=== PATIENT | female | born 1985 | race Caucasian/White ===

== ENCOUNTER 2016-08-18 09:27 | Emergency (ER) | payer MEDICAID ==
--- NOTE | 2016-08-18 10:53 | ER Document Report ---
ED General - General Chief Complaint: Jaw Pain Stated Complaint: JAW PAIN Time seen by provider: 10:28 TRAVEL OUTSIDE OF THE [place] IN LAST 30 DAYS: No - HPI Notes: Patient presents with report of left jaw TMJ pain that she's had chronically since 1999 when she had jaw surgery, but she reports worsening of it recently. 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 She's tried Flexeril without relief. She reports no fever or chills but the pain radiates up to the temporal region and down to the jaw. The patient reports no pharyngitis or difficulty swallowing but she has significant pain with opening and closing the jaw and is unable to completely open the jaw. - Related Data Allergies/Adverse Reactions: aripiprazole [From Abilify] Allergy (Severe, Verified 08/18/16 09:32) Anaphylaxis olanzapine [From Zyprexa] Allergy (Severe, Verified 08/18/16 09:32) Anaphylaxis risperidone [From Risperdal] Allergy (Severe, Verified 08/18/16 09:32) Anaphylaxis Past Medical History - Social History Smoking Status: Current Some Day Smoker Chew tobacco use (# tins/day): No Frequency of alcohol use: None Drug Abuse: None Family History: None Patient has suicidal ideation: No Patient has homicidal ideation: No Renal/ Medical History: Reports: Hx Ovarian Cysts. Denies: Hx Peritoneal Dialysis Musculoskeltal Medical History: Reports Hx Arthritis - TMJ joint pain Psychiatric Medical History: Reports: Hx Bipolar Disorder, Hx Depression Past Surgical History: Reports: Hx Oral Surgery Review of Systems - Review of Systems Notes: REVIEW OF SYSTEMS: CONSTITUTIONAL : Denies fever, chills, or sweats. Denies recent illness. EENT: Denies nasal or sinus congestion or discharge. Denies throat, tongue, or mouth swelling or difficulty swallowing. CARDIOVASCULAR: Denies chest pain. Denies palpitations or racing or irregular heart beat. Denies ankle edema. RESPIRATORY: Denies cough, cold, or chest congestion. Denies shortness of breath, difficulty breathing, or wheezing. GASTROINTESTINAL: Denies abdominal pain or distention. Denies nausea, vomiting , or diarrhea. Denies blood in vomitus, stools, or per rectum. Denies black, tarry stools. Denies constipation. MUSCULOSKELETAL: Denies back or neck pain or stiffness. Denies joint pain or swelling. SKIN: Denies rash, lesions or sores. HEMATOLOGIC : Denies easy bruising or bleeding. LYMPHATIC: Denies swollen, enlarged glands. NEUROLOGICAL: Denies confusion or altered mental status. Denies passing out or loss of consciousness. Denies dizziness or lightheadedness. Denies headache. Denies weakness or paralysis or loss of use of either side. Denies problems with gait or speech. Denies sensory loss, numbness, or tingling. Denies seizures. ALL OTHER SYSTEMS REVIEWED AND NEGATIVE. Dictation was performed using [employer] voice recognition software Physical Exam - Vital signs Vitals: Temp Pulse Resp BP Pulse Ox 98.4 F 112 H 18 104/82 98 08/18/16 09:08/18/16 09:08/18/16 09:08/18/16 09:08/18/16 09:33 - Notes Notes: PHYSICAL EXAMINATION: GENERAL: Well-appearing, well-nourished and in no acute distress. HEAD: Atraumatic, normocephalic. EYES: Pupils equal round and reactive to light, extraocular movements intact, conjunctiva are normal. ENT: Nares patent, oropharynx clear without exudates. Moist mucous membranes. No facial swelling or cellulitis. Patient has pain over the left TMJ joint region. Tympanic membranes are clear bilaterally. No significant dental abnormalities noted or evidence for cavitary lesions. NECK: Normal range of motion, supple without lymphadenopathy LUNGS: Breath sounds clear to auscultation bilaterally and equal. No wheezes rales or rhonchi. HEART: Regular rate and rhythm without murmurs ABDOMEN: Soft, nontender, nondistended abdomen. No guarding, no rebound. No masses appreciated. Female : deferred Musculoskeletal: Normal range of motion, no pitting or edema. No cyanosis. NEUROLOGICAL: Cranial nerves grossly intact. Normal speech, normal gait. Normal sensory, motor exams PSYCH: Normal mood, normal affect. SKIN: Warm, Dry, normal turgor, no rashes or lesions noted. Course - Vital Signs Vital signs: Temp Pulse Resp BP Pulse Ox 98.4 F 112 H 18 104/82 98 08/18/16 09:33 08/18/16 09:33 08/18/16 09:08/18/16 09:08/18/16 09:33 Discharge - Discharge Clinical Impression: TMJ (temporomandibular joint syndrome) Condition: Stable Disposition: HOME, SELF-CARE Instructions: Temporomandibular Joint Syndrome ([facility]) Additional Instructions: Follow-up with Dr. Jaimes. Suggest using a bite guard. Prescriptions: Hydrocodone/Acetaminophen [[place] 5-325 mg Tablet] 1 tab PO Q6HP PRN #20 tablet PRN Reason: Methocarbamol [Robaxin 500 mg Tablet] 500 mg PO TIDP PRN #30 tablet PRN Reason:
[2016-08-18 11:14] VITALS: BP 105/72
== END 2016-08-18 11:15 | disposition home or self-care (01) ==
LOC: ER 09:27
DX: G89.29 Other chronic pain (principal); M26.622 Arthralgia of left temporomandibular joint; F17.200 Nicotine dependence, unspecified, uncomplicated; Z98.890 Other specified postprocedural states; Z87.892 Personal history of anaphylaxis; Z88.8 Allergy status to other drugs, medicaments and biological substances
CPT/HCPCS: 99283

== ENCOUNTER 2017-09-21 12:45 | Emergency (ER) | payer MEDICAID ==
[2017-09-21] MEDS ORDERED: OXYCODONE-ACETAMINOPHEN 5-325 MG TABLET PO ONE (13:26)
[2017-09-21] MEDS ORDERED: DIAZEPAM 5 MG TABLET PO ONE (15:25)
--- NOTE | 2017-09-21 15:26 | RADIOLOGY REPORT (SQ) ---
EXAM DESCRIPTION: TMJ COMPLETED DATE/TIME: 09/21/2017 2:29 pm REASON FOR STUDY: PAIN, FEELS LIKE CAN'T OPEN MOUTH COMPARISON: None. TECHNIQUE: Routine TMJ imaging is performed with closed and open mouth. LIMITATIONS: None. FINDINGS: The TMJs appear normal. There is no wall abnormal dislocation or other abnormality. Surg ical hardware is present in the mandibles and in the anterior face. IMPRESSION: Normal TMJs. Consider MRI for further evaluation if clinically indicated. TECHNICAL DOCUMENTATION: JOB ID: [id number] [employer]- All Rights Reserved Reading location - IP/workstation name: [email or web address]
--- NOTE | 2017-09-21 15:46 | ER Document Report ---
ED Oral Problem - General Chief Complaint: Jaw Pain Stated Complaint: JAW PAIN Time Seen by Provider: 09/21/17 13:01 Mode of Arrival: Ambulatory Information source: Patient Notes: Patient is a 32-year-old female who presents to the ER today for left jaw pain starting approximately 2 days ago after "eating a lot of Easter candy." Patient states that she has had multiple surgeries on her temporomandibular joints. She states that she has screws placed in her TMJs. Patient states that she cannot open her mouth past a certain point and for that reason she has not been eating over the past 2 days. TRAVEL OUTSIDE OF THE [place] IN LAST 30 DAYS: No - Related Data Allergies/Adverse Reactions: aripiprazole [From Abilify] Allergy (Severe, Verified 09/21/17 12:46) Anaphylaxis olanzapine [From Zyprexa] Allergy (Severe, Verified 09/21/17 12:46) Anaphylaxis risperidone [From Risperdal] Allergy (Severe, Verified 09/21/17 12:46) Anaphylaxis Past Medical History - General Information source: Patient - Social History Smoking Status: Unknown if Ever Smoked Family History: None Patient has suicidal ideation: No Patient has homicidal ideation: No Renal/ Medical History: Reports: Hx Ovarian Cysts. Denies: Hx Peritoneal Dialysis Musculoskeltal Medical History: Reports Hx Arthritis - TMJ joint pain Psychiatric Medical History: Reports: Hx Bipolar Disorder, Hx Depression Past Surgical History: Reports: Hx Oral Surgery Review of Systems - Review of Systems Constitutional: No symptoms reported EENT: No symptoms reported Cardiovascular: No symptoms reported Respiratory: No symptoms reported Gastrointestinal: No symptoms reported Genitourinary: No symptoms reported Female Genitourinary: No symptoms reported Musculoskeletal: See HPI Skin: No symptoms reported Hematologic/Lymphatic: No symptoms reported Neurological/Psychological: No symptoms reported Physical Exam - Vital signs Vitals: Temp Pulse Resp BP Pulse Ox 98.6 F 122 H 17 99/67 L 99 09/21/17 12:48 09/21/17 12:48 09/21/17 12:48 09/21/17 12:48 09/21/17 12:48 - Notes Notes: PHYSICAL EXAMINATION: GENERAL: Uncomfortable appearing, holding left TMJ, but in no acute distress. HEAD: Atraumatic, normocephalic. EYES: Pupils equal round and reactive to light, extraocular movements intact, sclera anicteric, conjunctiva are normal. ENT: ear canals without erythema or foreign body, TMs pearly meza with good bony landmarks, nares patent, oropharynx clear without exudates. Moist mucous membranes. Airway patent, patient able to open mouth completely but with pain, no popping with TMJ palpation on opening and closing of mouth NECK: Normal range of motion, supple without lymphadenopathy LUNGS: CTAB and equal. No wheezes rales or rhonchi. HEART: Regular rate and rhythm without murmurs EXTREMITIES: Normal range of motion, no pitting edema. No cyanosis. NEUROLOGICAL: Cranial nerves grossly intact. Normal sensory/motor exams. PSYCH: Normal mood, normal affect. SKIN: Warm, Dry, normal turgor, no rashes or lesions noted Course - Re-evaluation Re-evalutation: 09/21/17 20:21 TMJ x-rays negative for any acute pathology, patient much better after pain medication and Valium here in the emergency department, able to open and close her mouth much easier. I have advised no more jellybeans and to eat soft foods and liquids. No chewing of any gum. - Vital Signs Vital signs: Temp Pulse Resp BP Pulse Ox 98.1 F 98 18 113/75 97 09/21/17 15:54 09/21/17 15:54 09/21/17 15:54 09/21/17 15:54 09/21/17 15:54 Discharge - Discharge Clinical Impression: TMJ (sprain of temporomandibular joint) Qualifiers: Encounter type: initial encounter Qualified Code(s): S03.40XA - Sprain of jaw, unspecified side, initial encounter Condition: Stable Disposition: HOME, SELF-CARE Additional Instructions: Return immediately for any new or worsening symptoms. Follow up with primary care provider, call tomorrow to make followup appointment. Prescriptions: Hydrocodone/Acetaminophen [[place] 5-325 mg Tablet] 1 tab PO Q4 PRN #10 tablet PRN Reason: Forms: Return to Work Referrals: ROLANDO HONG MD [Primary Care Provider] - Follow up as needed
[2017-09-21 15:57] VITALS: BP 113/75
== END 2017-09-21 15:57 | disposition home or self-care (01) ==
LOC: ER 12:45
DX: S03.40XA Sprain of jaw, unspecified side, initial encounter (principal); R68.84 Jaw pain; X58.XXXA Exposure to other specified factors, initial encounter; Z98.890 Other specified postprocedural states; Z87.892 Personal history of anaphylaxis; Z88.8 Allergy status to other drugs, medicaments and biological substances
CPT/HCPCS: 99283; 70330; J3490

== ENCOUNTER 2018-01-12 15:35 | Observation (INO) | payer MEDICAID ==
[2018-01-12] MEDS ORDERED: MORPHINE SULFATE 10 MG/ML INJ IV ONE ×3 (15:59→22:08)
[2018-01-12] MEDS ORDERED: NORMAL SALINE 1000 ML 1,000 ML IV PRN (15:59)
[2018-01-12] MEDS ORDERED: DEXTROSE 5%-NORMAL SALINE 1,000 ML IV ONE (16:00)
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
--- NOTE | 2018-01-12 16:51 | RADIOLOGY REPORT (SQ) ---
EXAM DESCRIPTION: WRIST LEFT 3 VIEWS COMPLETED DATE/TIME: 01/12/2018 4:44 pm REASON FOR STUDY: pain injury COMPARISON: None. NUMBER OF VIEWS: Two views. TECHNIQUE: AP and lateral radiographic images acquired of the left wrist. LIMITATIONS: None. FINDINGS: MINERALIZATION: Normal. BONES: Comminuted fracture of the distal radius with intra-articular extension. Posterior displaceme nt of the distal fragments. SOFT TISSUES: No soft tissue swelling. No foreign body. OTHER: No other significant finding. IMPRESSION: Comminuted fracture of the distal radius with intra-articular extension. TECHNICAL DOCUMENTATION: JOB ID: [id number] [email or web address]- All Rights Reserved Reading location - IP/workstation name: [email or web address]
--- NOTE | 2018-01-12 16:52 | RADIOLOGY REPORT (SQ) ---
EXAM DESCRIPTION: FOREARM LEFT COMPLETED DATE/TIME: 01/12/2018 4:42 pm REASON FOR STUDY: pain injury COMPARISON: None. NUMBER OF VIEWS: Two views. TECHNIQUE: Two radiographic images acquired of the left forearm, including elbow and wrist in at [address] one projection. LIMITATIONS: None. FINDINGS: MINERALIZATION: Normal. BONES: Comminuted fracture of the distal radius with slight posterior displacement of distal fragment s. There appears to be intra-articular extension centrally. SOFT TISSUES: No obvious swelling or foreign body. OTHER: No other significant finding. IMPRESSION: Comminuted fracture of the distal radius slight posterior displacement of the distal fra gments. TECHNICAL DOCUMENTATION: JOB ID: [id number] [employer]- All Rights Reserved Reading location - IP/workstation name: [email or web address]
[2018-01-12 20:07] LABS: APPEARANCE,URINE SLIGHTLY-CLOUDY; BILIRUBIN,URINE NEGATIVE (NEGATIVE); COLOR,URINE YELLOW; GLUCOSE, URINE NEGATIVE (NEGATIVE); KETONES,URINE NEGATIVE (NEGATIVE); LEUKOCYTE ESTERASE,URINE LARGE (NEGATIVE); NITRITE,URINE NEGATIVE (NEGATIVE); PROTEIN,URINE NEGATIVE (NEGATIVE); URINE SPECIFIC GRAVITY 1.009; UROBILINOGEN,URINE NEGATIVE mg/dL (<2.0)
[2018-01-12 20:20] LABS: URINE AMPHETAMINES SCREEN NEGATIVE; URINE BARBITURATES SCREEN NEGATIVE; URINE BENZODIAZEPINES SCREEN NEGATIVE; URINE COCAINE SCREEN UNCONFIRMED POSITIVE; URINE MARIJUANA (THC) SCREEN NEGATIVE; URINE METHADONE SCREEN NEGATIVE; URINE PHENCYCLIDINE SCREEN NEGATIVE
[2018-01-13] MEDS: RINGERS SOLUTION,LACTATED 1,000 ML IV PRN ×2 (00:21→06:21)
[2018-01-13] MEDS: MORPHINE SULFATE 10 MG/ML INJ IV PRN ×4 (00:21→06:18)
[2018-01-13] MEDS ORDERED: GLUCAGON,HUMAN RECOMB 1 MG INJ SUBCUT PRN (00:38)
[2018-01-13] MEDS ORDERED: DEXTROSE 40% GEL 15 GM TUBE PO PRN ×2 (00:38)
[2018-01-13] MEDS ORDERED: DEXTROSE 50%-WATER 25 GM/50 ML DISP.SYRIN IV PRN ×2 (00:38)
[2018-01-13 06:24] LABS: ANION GAP 8 (5-19); BLOOD UREA NITROGEN 6 mg/dL (7-20); CALCIUM 8.2 mg/dL (8.4-10.2); CARBON DIOXIDE 22 mmol/L (22-30); CHLORIDE 113 mmol/L (98-107); GLUCOSE 91 mg/dL (75-110); POTASSIUM 3.9 mmol/L (3.6-5.0); SODIUM 142.6 mmol/L (137-145)
[2018-01-13 07:37] LABS: ABSOLUTE EOSINOPHILS # (AUTO) 0.1 10^3/uL (0.0-0.6); ABSOLUTE LYMPHOCYTES (AUTO) 2.7 10^3/uL (0.5-4.7); ABSOLUTE MONOCYTES (AUTO) 0.5 10^3/uL (0.1-1.4); BASOPHILS % (AUTO) 0.4 % (0-2); EOSINOPHILS % (AUTO) 1.4 % (0-6); HEMATOCRIT 38.9 % (36.0-47.0); HEMOGLOBIN 13.4 g/dL (12.0-15.5); LYMPHOCYTES % (AUTO) 32.9 % (13-45); MEAN CORPUSCULAR HEMOGLOBIN 29.6 pg (27.0-33.4); MEAN CORPUSCULAR HGB CONC 34.3 g/dL (32.0-36.0); MEAN CORPUSCULAR VOLUME 86 fl (80-97); MONOCYTES % (AUTO) 5.6 % (3-13); PLATELET COUNT 184 10^3/uL (150-450); RED BLOOD COUNT 4.52 10^6/uL (3.72-5.28); SEGMENTED NEUTROPHILS % (AUTO) 59.7 % (42-78); TOTAL CELLS COUNTED % (AUTO) 100 %; WHITE BLOOD COUNT 8.3 10^3/uL (4.0-10.5)
[2018-01-13 08:01] LABS: INTERNATIONAL RATION (INR) 0.91; PROTHROMBIN TIME 12.7 SEC (11.4-15.4)
[2018-01-13 08:02] LABS: PARTIAL THROMBOPLASTIN TIME 32.9 SEC (23.5-35.8)
[2018-01-13] MEDS ORDERED: HYDROMORPHONE HCL INJ/PF 2 MG/ML AMPULE ONE (08:04)
[2018-01-13] MEDS ORDERED: MIDAZOLAM 2 MG/2 ML INJ ONE (08:04)
[2018-01-13] MEDS ORDERED: FENTANYL CITRATE INJ/PF 250 MCG/5 ML AMPULE ONE (08:04)
[2018-01-13] MEDS ORDERED: PROPOFOL INJ 200 MG/20 ML VIAL IV ONE (08:04)
[2018-01-13] MEDS ORDERED: ONDANSETRON HCL INJ/PF 4 MG/2 ML SDV ONE (08:06)
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
[2018-01-13] MEDS ORDERED: ALBUTEROL SULFATE 0.083% NEB 2.5 MG/3 ML AMPUL NEB ONE (08:11)
[2018-01-13] MEDS ORDERED: DEXMEDETOMIDINE INJ 80 MCG/20 ML VIAL IV ONE (08:22)
[2018-01-13] MEDS ORDERED: MEPERIDINE HCL/PF INJ 25 MG/1 ML DISP.SYRIN IV PRN (08:56)
[2018-01-13] MEDS ORDERED: FENTANYL CITRATE INJ/PF 100 MCG/2 ML AMPUL IV PRN ×3 (08:56)
[2018-01-13] MEDS ORDERED: PROMETHAZINE HCL INJ 25 MG/1 ML VIAL IV PRN ×2 (08:56)
[2018-01-13] MEDS ORDERED: MORPHINE SULFATE 10 MG/ML INJ IV PRN (08:56)
[2018-01-13] MEDS ORDERED: DIPHENHYDRAMINE HCL 50 MG/ML VIAL IV PRN (08:56)
--- NOTE | 2018-01-13 09:14 | Discharge Summary ---
Discharge Summary (SDC) - Discharge Final Diagnosis: Left distal radius fracture Date of Surgery: 01/13/18 Discharge Date: 01/13/18 Condition: Good Treatment or Instructions: Elevate left upper extremity above heart Prescriptions: Oxycodone HCl [Oxy-[place] 5 mg Tablet] 5 mg PO Q6HP PRN #60 tab PRN Reason: Referrals: ROLANDO HONG MD [Primary Care Provider] - Follow up as needed
--- NOTE | 2018-01-13 09:16 | Operative Report ---
Operative Report DATE OF SURGERY: 01/13/18 PREOPERATIVE DIAGNOSIS: Left distal radius fracture OPERATION: Open reduction internal fixation left distal radius fracture SURGEON: VASU TERRELL ANESTHESIA: GA ESTIMATED BLOOD LOSS: Minimal PROCEDURE: The patient supine on the operative table the left upper extremities prepped and draped in a sterile fashion. Under fluoroscopic guidance the fracture is reduced anatomically and a single radial styloid pin is placed to hold the fracture in the reduced position. Subsequently a volar approach to the distal radius between the flexor carpi radialis and the radial neurovascular bundle was performed exposing the volar aspect of the radius. A [place] titanium distal volar radial plate is applied to the volar surface and secured with 3 screws proximally and 4 screws subchondrally. Fracture reduction and hardware placement are checked fluoroscopically in 2 planes and felt to be adequate. The tourniquet is deflated. The wound is irrigated with bulb lavage. Hemostasis obtained with bipolar cautery. The wound is then closed in layers interrupted Vicryl followed by nylon. A sterile compressive dressings applied and the patient's return to PACU in satisfactory condition.
[2018-01-13] MEDS ORDERED: FENTANYL CITRATE INJ/PF 100 MCG/2 ML AMPUL ONE (09:34)
[2018-01-13] MEDS ORDERED: PROMETHAZINE HCL INJ 25 MG/1 ML VIAL ONE (09:35)
[2018-01-13] MEDS ORDERED: MORPHINE SULFATE 10 MG/ML INJ ONE (09:35)
[2018-01-13] MEDS ORDERED: OXYCODONE HCL IR 5 MG TABLET PO PRN (11:14)
[2018-01-13] MEDS ORDERED: ONDANSETRON 4 MG TAB.RAPDIS PO PRN (11:15)
[2018-01-14 22:43] VITALS: BP 106/64
--- NOTE | 2018-01-15 09:32 | RADIOLOGY REPORT (SQ) ---
EXAM DESCRIPTION: NO CHG FLUORO; WRIST LEFT 2 VIEWS COMPLETED DATE/TIME: 01/13/2018 9:26 am REASON FOR STUDY: ORIF LT WRIST OR2 COMPARISON: None. FLUOROSCOPY TIME: 15 seconds 2 images saved to PACS. TECHNIQUE: Intra-operative images acquired during surgical procedure to evaluate progress. NUMBER OF IMAGES: 2 LIMITATIONS: None. FINDINGS: Plate and screw fixation of distal radial fracture. Alignment is near anatomic. IMPRESSION: IMAGE(S) OBTAINED DURING PROCEDURE. COMMENT: Quality ID 145: Final reports for procedures using fluoroscopy that document radiation exp osure indices, or exposure time and number of fluorographic images (if radiation exposure indices are not available) Please consult full operative report of the attending physician for description of the procedure. TECHNICAL DOCUMENTATION: JOB ID: [id number] [employer]- All Rights Reserved Reading location - IP/workstation name: [email or web address]
--- NOTE | 2018-01-15 09:32 | RADIOLOGY REPORT (SQ) ---
EXAM DESCRIPTION: NO CHG FLUORO; WRIST LEFT 2 VIEWS COMPLETED DATE/TIME: 01/13/2018 9:26 am REASON FOR STUDY: ORIF LT WRIST OR2 COMPARISON: None. FLUOROSCOPY TIME: 15 seconds 2 images saved to PACS. TECHNIQUE: Intra-operative images acquired during surgical procedure to evaluate progress. NUMBER OF IMAGES: 2 LIMITATIONS: None. FINDINGS: Plate and screw fixation of distal radial fracture. Alignment is near anatomic. IMPRESSION: IMAGE(S) OBTAINED DURING PROCEDURE. COMMENT: Quality ID 145: Final reports for procedures using fluoroscopy that document radiation exp osure indices, or exposure time and number of fluorographic images (if radiation exposure indices are not available) Please consult full operative report of the attending physician for description of the procedure. TECHNICAL DOCUMENTATION: JOB ID: [id number] [employer]- All Rights Reserved Reading location - IP/workstation name: [email or web address]
== END 2018-01-13 15:55 | disposition home or self-care (01) ==
LOC: ER 15:35 → EH 17:57 → INTOOBSV 17:57 → 4S 23:00
PROVIDERS: ADMIT Orthopaedic Surgery; ATTEND Orthopaedic Surgery
PROC: 0PSJ04Z Reposition Left Radius with Internal Fixation Device, Open Approach (ICD-10-PCS; 2018-01-13)
PROC: 2W3DX1Z Immobilization of Left Lower Arm using Splint (ICD-10-PCS; 2018-01-13)
PROC: HZ31ZZZ Individual Counseling for Substance Abuse Treatment, Behavioral (ICD-10-PCS; principal; 2018-01-13 08:00)
DX: S52.572A Other intraarticular fracture of lower end of left radius, initial encounter for closed fracture (principal); V87.8XXA Person injured in other specified noncollision transport accidents involving motor vehicle (traffic), initial encounter; F31.9 Bipolar disorder, unspecified; F17.210 Nicotine dependence, cigarettes, uncomplicated; F14.10 Cocaine abuse, uncomplicated; F12.10 Cannabis abuse, uncomplicated
CPT/HCPCS: 99284; 96374; 36415; 85025; 85610; 85730; 81025; 80048; 81001; 80307; 73090; 73100 ×2; 99406; 25608; 29125; G0378 ×2; C1713 ×7; J2250; J3010 ×2; J2270 ×2; J2550; J2405; J7120; J2704; J3490 ×2; 01830; J1170

== ENCOUNTER → 2018-04-03 | Outpatient (CLI) | payer MEDICAID ==
--- NOTE | 2018-04-03 16:22 | RADIOLOGY REPORT (SQ) ---
EXAM DESCRIPTION: FOOT LEFT COMPLETE COMPLETED DATE/TIME: 04/03/2018 4:11 pm REASON FOR STUDY: CELLULITIS OF LEFT TOE L03.032 CELLULITIS OF LEFT TOE COMPARISON: None. NUMBER OF VIEWS: Three views. TECHNIQUE: AP, lateral and oblique without weight bearing radiographic images acquired of the left f oot. LIMITATIONS: None. FINDINGS: MINERALIZATION: Normal. BONES: No acute fracture or dislocation. No worrisome bone lesions. No significant osteophytes. JOINTS: No erosions. No suzi-articular osteopenia. No chondrocalcinosis. SOFT TISSUES: No swelling. No calcifications. OTHER: No other significant finding. IMPRESSION: NEGATIVE STUDY OF THE LEFT FOOT. NO EXPLANATION FOR PAIN. TECHNICAL DOCUMENTATION: JOB ID: [id number] [employer]- All Rights Reserved Reading location - IP/workstation name: [email or web address]
== END ==
LOC: OD 15:57
PROVIDERS: ATTEND Physician Assistant
DX: L03.032 Cellulitis of left toe (principal)

== ENCOUNTER 2018-04-06 14:19 | Inpatient (IN) | payer MEDICAID ==
[2018-04-06] MEDS ORDERED: CEFTRIAXONE 2 GM/D5W RTU 2 GM/50 ML RTUPB IV ONE (14:40)
[2018-04-06] MEDS ORDERED: NORMAL SALINE 1000 ML 1,000 ML IV ONE (14:41)
[2018-04-06] MEDS ORDERED: KETOROLAC TROMETHAMINE INJ/PF 30 MG/1 ML SDV IV ONE (14:41)
--- NOTE | 2018-04-06 14:42 | ER Document Report ---
ED Medical Screen (RME) - General Chief Complaint: Foot Pain Stated Complaint: FOOT INFECTION Time Seen by Provider: 04/06/18 14:36 Notes: 32 years old female presents today with left foot pain, redness, swelling, yellow discoloration at the fifth metacarpal bone distally. No fever for a week. Taking Keflex without much improvement. History of psychiatric disorder On examination-left foot shows diffuse erythema is warm and tender to touch. The junction of fifth metatarsal tarsal bone and fifth digit there is an area of yellow discoloration with fluid-filled abscess. About 1.5 x 2 cm. TRAVEL OUTSIDE OF THE [place] IN LAST 30 DAYS: No - Related Data Allergies/Adverse Reactions: aripiprazole [From Abilify] Allergy (Severe, Verified 04/06/18 14:19) Anaphylaxis olanzapine [From Zyprexa] Allergy (Severe, Verified 04/06/18 14:19) Anaphylaxis risperidone [From Risperdal] Allergy (Severe, Verified 04/06/18 14:19) Anaphylaxis Past Medical History Renal/ Medical History: Reports: Hx Ovarian Cysts. Denies: Hx Peritoneal Dialysis Musculoskeltal Medical History: Reports Hx Arthritis - TMJ joint pain Psychiatric Medical History: Reports: Hx Bipolar Disorder, Hx Depression Past Surgical History: Reports: Hx Oral Surgery - tmj - Immunizations Immunizations up to date: Yes Hx Diphtheria, Pertussis, Tetanus Vaccination: Yes Physical Exam - Vital signs Vitals: Temp Pulse Resp BP Pulse Ox 98.2 F 109 H 20 116/78 99 04/06/18 14:23 04/06/18 14:23 04/06/18 14:23 04/06/18 14:23 04/06/18 14:23 Course - Vital Signs Vital signs: Temp Pulse Resp BP Pulse Ox 98.2 F 109 H 20 116/78 99 04/06/18 14:23 04/06/18 14:23 04/06/18 14:23 04/06/18 14:23 04/06/18 14:23 Doctor's Discharge - Discharge Referrals: HAIR RIVEAR PA [Primary Care Provider] - Follow up as needed
[2018-04-06] MEDS ORDERED: CEFTRIAXONE SODIUM 2,000 MG in DEXTROSE 5%-WATER 100 ML IV ONE (15:00)
[2018-04-06] MEDS ORDERED: PIPERACILLIN/TAZOBACTAM 3.375 GM VIAL IV ONE (15:19)
[2018-04-06] MEDS ORDERED: VANCOMYCIN HCL INJ 1000 MG VIAL IV ONE (15:19)
[2018-04-06] MEDS ORDERED: HYDROMORPHONE HCL INJ/PF 2 MG/ML AMPULE IV ONE (15:20)
[2018-04-06] MEDS ORDERED: ONDANSETRON HCL INJ/PF 4 MG/2 ML SDV IV ONE (15:22)
[2018-04-06 15:28] LABS: ABSOLUTE LYMPHOCYTES (AUTO) 1.6 10^3/uL (0.5-4.7); ABSOLUTE MONOCYTES (AUTO) 0.5 10^3/uL (0.1-1.4); ABSOLUTE NEUT (AUTO) 5.3 10^3/uL (1.7-8.2); BASOPHILS % (AUTO) 0.4 % (0-2); EOSINOPHILS % (AUTO) 0.3 % (0-6); HEMATOCRIT 35.9 % (36.0-47.0); HEMOGLOBIN 12.2 g/dL (12.0-15.5); LYMPHOCYTES % (AUTO) 21.3 % (13-45); MEAN CORPUSCULAR VOLUME 82 fl (80-97); MONOCYTES % (AUTO) 7.3 % (3-13); PLATELET COUNT 262 10^3/uL (150-450); RED BLOOD COUNT 4.37 10^6/uL (3.72-5.28); RED CELL DISTRIBUTION WIDTH 13.7 % (11.5-14.0); SEGMENTED NEUTROPHILS % (AUTO) 70.7 % (42-78); TOTAL CELLS COUNTED % (AUTO) 100 %; WHITE BLOOD COUNT 7.5 10^3/uL (4.0-10.5)
[2018-04-06 16:15] LABS: ALANINE AMINOTRANSFERASE 48 U/L (9-52); ALBUMIN 3.6 g/dL (3.5-5.0); ALKALINE PHOSPHATASE 88 U/L (38-126); ANION GAP 9 (5-19); ASPARTATE AMINO TRANSFERASE 24 U/L (14-36); BILIRUBIN,DIRECT 0.2 mg/dL (0.0-0.4); BILIRUBIN,TOTAL 0.6 mg/dL (0.2-1.3); BLOOD UREA NITROGEN 12 mg/dL (7-20); CALCIUM 9.5 mg/dL (8.4-10.2); CARBON DIOXIDE 22 mmol/L (22-30); CHLORIDE 110 mmol/L (98-107); GLUCOSE 119 mg/dL (75-110); POTASSIUM 3.7 mmol/L (3.6-5.0); SODIUM 141.1 mmol/L (137-145); TOTAL PROTEIN 6.8 g/dL (6.3-8.2)
--- NOTE | 2018-04-06 16:17 | ER Document Report ---
ED General - General Chief Complaint: Foot Pain Stated Complaint: FOOT PAIN Time Seen by Provider: 04/06/18 14:36 Mode of Arrival: Stretcher Information source: Patient Notes: This is a 32-year-old female presenting to the emergency room with a progressively worsening foot infection despite out patient antibiotics. Patient states that she was walking barefoot approximately a week ago and she felt a "bruise" over the lateral aspect of her foot. She states that that area became red and she was seen in the office on Monday (3 days ago) and started on Keflex. Patient presents to the emergency room with worsening swelling, redness and pain. Patient was seen in Dr. Chauhan's office and referred to the emergency room. Her last tetanus shot was this week. Patient denies IV drugs but does state she snorts crystal met and cocaine. Patient is on no medicines other than the Keflex. TRAVEL OUTSIDE OF THE [place] IN LAST 30 DAYS: No - HPI Onset: Last week Onset/Duration: Gradual Quality of pain: Dull Severity: Moderate Pain Level: 4 Associated symptoms: denies: Chest pain, Fever, Shortness of breath Exacerbated by: Movement Relieved by: Denies Similar symptoms previously: Yes Recently seen / treated by doctor: Yes - Related Data Allergies/Adverse Reactions: aripiprazole [From Abilify] Allergy (Severe, Verified 04/06/18 14:19) Anaphylaxis olanzapine [From Zyprexa] Allergy (Severe, Verified 04/06/18 14:19) Anaphylaxis risperidone [From Risperdal] Allergy (Severe, Verified 04/06/18 14:19) Anaphylaxis Past Medical History - General Information source: Patient - Social History Smoking Status: Current Every Day Smoker Cigarette use (# per day): Yes - 1 pack/day Chew tobacco use (# tins/day): No Frequency of alcohol use: Social Drug Abuse: Cocaine, Methamphetamine, Prescription drugs Family History: None Patient has suicidal ideation: No Patient has homicidal ideation: No - Past Medical History Cardiac Medical History: Reports: None Pulmonary Medical History: Reports: None Endocrine Medical History: Reports: None Renal/ Medical History: Reports: Hx Ovarian Cysts. Denies: Hx Peritoneal Dialysis Malignancy Medical History: Reports: None GI Medical History: Reports: None Musculoskeletal Medical History: Reports Hx Arthritis - TMJ joint pain Psychiatric Medical History: Reports: Hx Bipolar Disorder, Hx Depression Past Surgical History: Reports: Hx Oral Surgery - tmj - Immunizations Immunizations up to date: Yes Hx Diphtheria, Pertussis, Tetanus Vaccination: Yes Review of Systems - Review of Systems Constitutional: denies: Chills, Fever EENT: No symptoms reported Cardiovascular: No symptoms reported Respiratory: No symptoms reported Gastrointestinal: No symptoms reported Genitourinary: No symptoms reported Female Genitourinary: No symptoms reported Musculoskeletal: See HPI Skin: No symptoms reported Hematologic/Lymphatic: No symptoms reported Neurological/Psychological: No symptoms reported Physical Exam - Vital signs Vitals: Temp Pulse Resp BP Pulse Ox 98.2 F 109 H 20 116/78 99 04/06/18 14:23 04/06/18 14:23 04/06/18 14:23 04/06/18 14:23 04/06/18 14:23 Notes: Physical exam: GENERAL: She is alert and oriented x3 complaining of left foot pain. HEAD: Atraumatic, normocephalic. EYES: Pupils equal round and reactive to light, extraocular movements intact, sclera anicteric, conjunctiva are normal. ENT: TMs normal, nares patent, oropharynx clear without exudates. Moist mucous membranes. NECK: Normal range of motion, supple without obvious mass or JVD. LUNGS: Breath sounds clear to auscultation bilaterally and equal. No wheezes rales or rhonchi. HEART: Regular rate and rhythm without murmurs, rubs or gallops. ABDOMEN: Soft, normoactive bowel sounds. No tenderness to palpation. No guarding, no rebound. No masses appreciated. EXTREMITIES: Left foot has a good dorsal pedal pulse. She has good cap refill. She does have erythema of the entire foot distally extending past the midfoot. There is no tenderness or erythema over the calcaneus. She does have some blistering over the fifth MTP joint (volar aspect). NEUROLOGICAL: Cranial nerves II through XII grossly intact. Normal speech, moving all extremities. PSYCH: Normal mood, normal affect. SKIN: Warm, Dry, normal turgor, no rashes or lesions noted. Course - Re-evaluation Re-evalutation: 04/06/18 16:20 Patient was seen in the office by Dr. Chauhan today. Since tetanus is up-to-date (receive shot this week in the office). IV Zosyn and IV vancomycin given. We will proceed with an MRI of the extremity with and without contrast. I discussed the case with Dr. Chauhan who requests orthopedic evaluation. I have discussed case with Dr. Polo who will see the patient after the MRI. Patient given pain medicine and fluids. 04/06/18 23:11 Note: This is a 32-year-old woman with a history of substance abuse presenting with a progressively worsening cellulitis of the left lower extremity unresponsive to outpatient antibiotics. MRI shows no obvious abscess. There is localized edema to the area. - Vital Signs Vital signs: Temp Pulse Resp BP Pulse Ox 97.5 F 65 20 115/60 100 04/06/18 19:00 04/06/18 19:00 04/06/18 19:00 04/06/18 19:00 04/06/18 19:00 - Laboratory Result Diagrams: 04/06/18 15:10 04/06/18 15:10 Laboratory results interpreted by me: 04/06/18 04/06/18 15:10 15:10 Hct 35.9 L Chloride 110 H Glucose 119 H Discharge - Discharge Clinical Impression: Left foot infection Condition: Stable Disposition: ADMITTED INPATIENT Admitting Provider: Tien Unit Admitted: Medical Floor
[2018-04-06] MEDS ORDERED: ACETAMINOPHEN 325 MG TABLET PO PRN (16:45)
[2018-04-06] MEDS ORDERED: NORMAL SALINE 1000 ML 1,000 ML IV PRN (16:45)
[2018-04-06] MEDS ORDERED: ONDANSETRON 4 MG TAB.RAPDIS PO PRN (16:45)
--- NOTE | 2018-04-06 16:45 | PDOC H&P ---
History of Present Illness Admission Date/PCP: 04/06/18 16:28 RUDDY SIDDIQI Patient complains of: Left foot pain History of Present Illness: DAVID MOONEY is a 32 year old female Ms. Mooney is a 32 y/o F who presents today for three day follow up of L lateral foot pain. She states the pain has gotten worse, swelling increased. She was started on Keflex last visit, has been taking TID. She denies any fever or chills. She admits the pain is so severe she has been using crutches to walk. Patient is seen in the officeAnd the patient's the foot is more redness and pretty much pus point and the patient's more painful decided to send to the emergency department and emergency department patient was started on IV antibiotic and consult the surgery She also had a x-ray of the left foot was done 3 days back was all normal Is currently denied any drugs no alcohol no subsequent drug abuse Pt with history of IV drug use, has not been using regularly. Past Medical History Musculoskeltal Medical History: Reports: Arthritis - TMJ joint pain Psychiatric Medical History: Reports: Bipolar Disorder, Depression Social History Smoking Status: Current Every Day Smoker Drugs: Cocaine Family History Family History: Reviewed & Not Pertinent Parental Family History Reviewed: Yes Children Family History Reviewed: Yes Sibling(s) Family History Reviewed.: Yes Medication/Allergy Allergies/Adverse Reactions: aripiprazole [From Abilify] Allergy (Severe, Verified 04/06/18 14:19) Anaphylaxis olanzapine [From Zyprexa] Allergy (Severe, Verified 04/06/18 14:19) Anaphylaxis risperidone [From Risperdal] Allergy (Severe, Verified 04/06/18 14:19) Anaphylaxis Review of Systems Constitutional: ABSENT: chills, fever(s), headache(s), weight gain, weight loss Eyes: ABSENT: visual disturbances Ears: ABSENT: hearing changes Cardiovascular: ABSENT: chest pain, dyspnea on exertion, edema, orthropnea, palpitations Respiratory: ABSENT: cough, hemoptysis Gastrointestinal: ABSENT: abdominal pain, constipation, diarrhea, hematemesis, hematochezia, nausea, vomiting Genitourinary: ABSENT: dysuria, hematuria Musculoskeletal: ABSENT: joint swelling Integumentary: ABSENT: rash, wounds Neurological: ABSENT: abnormal gait, abnormal speech, confusion, dizziness, focal weakness, syncope Psychiatric: ABSENT: anxiety, depression, homidical ideation, suicidal ideation Endocrine: ABSENT: cold intolerance, heat intolerance, menstrual abnormalities, polydipsia, polyuria Hematologic/Lymphatic: ABSENT: easy bleeding, easy bruising, lymphadenopathy Physical Exam Vital Signs: Temp Pulse Resp BP Pulse Ox 98.2 F 109 H 20 116/78 99 04/06/18 14:23 04/06/18 14:23 04/06/18 14:23 04/06/18 14:23 04/06/18 14:23 General appearance: PRESENT: no acute distress, well-developed, well-nourished Head exam: PRESENT: atraumatic, normocephalic Eye exam: PRESENT: conjunctiva pink, EOMI, PERRLA. ABSENT: scleral icterus Ear exam: PRESENT: normal external ear exam Mouth exam: PRESENT: moist, tongue midline Neck exam: PRESENT: full ROM. ABSENT: carotid bruit, JVD, lymphadenopathy, thyromegaly Respiratory exam: PRESENT: clear to auscultation christopher Cardiovascular exam: PRESENT: RRR. ABSENT: diastolic murmur, rubs, systolic murmur Pulses: PRESENT: normal dorsalis pedis pul, +2 pedal pulses bilateral Vascular exam: PRESENT: normal capillary refill GI/Abdominal exam: PRESENT: normal bowel sounds, soft. ABSENT: distended, guarding, mass, organolmegaly, rebound, tenderness Rectal exam: PRESENT: deferred Additional comments: Left foot on the fifth metatarsal significant swelling redness and a pus point is present Neurological exam: PRESENT: alert, awake, oriented to person, oriented to place , oriented to time, oriented to situation, CN II-XII grossly intact. ABSENT: motor sensory deficit Psychiatric exam: PRESENT: appropriate affect, normal mood. ABSENT: homicidal ideation, suicidal ideation Skin exam: PRESENT: dry, intact, warm. ABSENT: cyanosis, rash Assessment & Plan - Diagnosis (1) Cellulitis of left foot Is this a current diagnosis for this admission?: Yes Plan: Start the patient on the broad-spectrum IV antibiotic Consult the surgery Continues the pain medication (2) History of intravenous drug abuse Is this a current diagnosis for this admission?: Yes Plan: not currently not using any drugs (3) Bipolar disorder Qualifiers: Active/Remission status: remission status unspecified Qualified Code(s): F31.9 - Bipolar disorder, unspecified Is this a current diagnosis for this admission?: Yes Plan: Currently all stable - Time Time Spent: 30 to 50 Minutes Medications reviewed and adjusted accordingly: Yes Anticipated discharge: Home Within: Other - Inpatient Certification Based on my medical assessment, after consideration of the patient's comorbidities, presenting symptoms, or acuity I expect that the services needed warrant INPATIENT care.: Yes I certify that my determination is in accordance with my understanding of Medicare's requirements for reasonable and necessary INPATIENT services [42 CFR 412.3e].: Yes Medical Necessity: Need For IV Fluids, Need for IV Antibiotics, Need for Surgery 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
[2018-04-06] MEDS ORDERED: VANCOMYCIN HCL 0 MG in DEXTROSE 5%-WATER 250 ML IV NR (17:00)
--- NOTE | 2018-04-06 19:36 | RADIOLOGY REPORT (SQ) ---
EXAM DESCRIPTION: MRI LT LOWER EXTREMITY COMBO COMPLETED DATE/TIME: 04/06/2018 6:45 pm REASON FOR STUDY: left foot infection COMPARISON: Plain radiograph TECHNIQUE: Multiplanar imaging of the left foot to include T1-weighted, postcontrast T1-weighted, an d T2-weighted images. CONTRAST TYPE AND DOSE: None mL Dotare[employer]. RENAL FUNCTION: GFR > 60. LIMITATIONS: Patient not able to cooperate. FINDINGS: BONE MARROW: No marrow normal. No cortical disruption. No fracture. No osteomyelitis. SOFT TISSUES: Generalized focal soft tissue swelling just lateral to the proximal phalanx of the 5th digit. There is generalize edema. A discrete abscess is not identified but there is some vague foca l fluid measuring approximately 1.2 cm by 6 mm. OTHER: No other significant finding. IMPRESSION: No osteomyelitis. No well-defined soft tissue abscess. Vague focal fluid and generaliz e edema along the lateral aspect of the proximal phalanx of the 5th digit. TECHNICAL DOCUMENTATION: JOB ID: [id number] [employer]- All Rights Reserved Reading location - IP/workstation name: [email or web address]
[2018-04-06] MEDS ORDERED: ENOXAPARIN SODIUM INJ 40 MG/0.4 ML DISP.SYRIN SUBCUT ONE (20:00)
[2018-04-06] MEDS: DOCUSATE SODIUM 100 MG CAPSULE PO SCH (20:14)
[2018-04-06] MEDS: PIPERACILLIN SODIUM/TAZOBACTAM 3.375 GM in NORMAL SALINE 100 ML IV SCH (20:34)
[2018-04-06] MEDS: OXYCODONE-ACETAMINOPHEN 5-325 MG TABLET PO PRN (20:35)
[2018-04-06] MEDS: FAMOTIDINE 20 MG TABLET PO SCH (23:08)
[2018-04-06] MEDS: HYDROMORPHONE HCL INJ/PF 2 MG/ML AMPULE IV PRN (23:08)
[2018-04-07 02:21] LABS: URINE BARBITURATES SCREEN NEGATIVE; URINE BENZODIAZEPINES SCREEN NEGATIVE; URINE MARIJUANA (THC) SCREEN NEGATIVE; URINE METHADONE SCREEN NEGATIVE; URINE PHENCYCLIDINE SCREEN NEGATIVE
[2018-04-07 02:34] LABS: URINE COCAINE SCREEN UNCONFIRMED POSITIVE
[2018-04-07] MEDS: PIPERACILLIN SODIUM/TAZOBACTAM 3.375 GM in NORMAL SALINE 100 ML IV SCH ×4 (02:48→20:40)
[2018-04-07] MEDS: HYDROMORPHONE HCL INJ/PF 2 MG/ML AMPULE IV PRN ×3 (05:38→20:40)
[2018-04-07 06:53] LABS: ABSOLUTE LYMPHOCYTES (AUTO) 1.9 10^3/uL (0.5-4.7); ABSOLUTE MONOCYTES (AUTO) 0.6 10^3/uL (0.1-1.4); ABSOLUTE NEUT (AUTO) 4.6 10^3/uL (1.7-8.2); BASOPHILS % (AUTO) 0.4 % (0-2); EOSINOPHILS % (AUTO) 0.7 % (0-6); HEMATOCRIT 33.5 % (36.0-47.0); HEMOGLOBIN 11.5 g/dL (12.0-15.5); LYMPHOCYTES % (AUTO) 26.6 % (13-45); MEAN CORPUSCULAR HEMOGLOBIN 28.6 pg (27.0-33.4); MEAN CORPUSCULAR HGB CONC 34.3 g/dL (32.0-36.0); MEAN CORPUSCULAR VOLUME 83 fl (80-97); MONOCYTES % (AUTO) 8.5 % (3-13); PLATELET COUNT 235 10^3/uL (150-450); RED BLOOD COUNT 4.02 10^6/uL (3.72-5.28); RED CELL DISTRIBUTION WIDTH 13.6 % (11.5-14.0); SEGMENTED NEUTROPHILS % (AUTO) 63.8 % (42-78); TOTAL CELLS COUNTED % (AUTO) 100 %; WHITE BLOOD COUNT 7.1 10^3/uL (4.0-10.5)
[2018-04-07 07:20] LABS: ANION GAP 8 (5-19); BLOOD UREA NITROGEN 11 mg/dL (7-20); CALCIUM 8.3 mg/dL (8.4-10.2); CARBON DIOXIDE 22 mmol/L (22-30); CHLORIDE 111 mmol/L (98-107); GLUCOSE 80 mg/dL (75-110); POTASSIUM 3.9 mmol/L (3.6-5.0); SODIUM 140.8 mmol/L (137-145)
[2018-04-07] MEDS ORDERED: ENOXAPARIN SODIUM INJ 40 MG/0.4 ML DISP.SYRIN SUBCUT SCH (10:00)
[2018-04-07] MEDS: DOCUSATE SODIUM 100 MG CAPSULE PO SCH ×2 (10:03→17:46)
[2018-04-07] MEDS: FAMOTIDINE 20 MG TABLET PO SCH ×2 (10:04→22:18)
[2018-04-07] MEDS: OXYCODONE-ACETAMINOPHEN 5-325 MG TABLET PO PRN ×2 (10:28→17:50)
[2018-04-07] MEDS ORDERED: NORMAL SALINE 1000 ML 1,000 ML IV PRN ×2 (10:54→23:55)
--- NOTE | 2018-04-07 10:54 | PDOC PROGRESS REPORT ---
Subjective Progress Note for:: 04/07/18 Subjective:: Patient is currently doing fair Patient MRI of the left foot did not show any osteomyelitis Patient still pending evaluations from the surgery No chest pain no short of breath Reason For Visit: LEFT FOOT CELLULITIS AND ABSCESS Physical Exam Vital Signs: Temp Pulse Resp BP Pulse Ox 97.8 F 53 L 14 99/63 L 100 04/07/18 07:27 04/07/18 07:27 04/07/18 07:27 04/07/18 07:27 04/07/18 07:27 Intake & Output 04/06/18 04/07/18 04/08/18 06:59 06:59 06:59 Intake Total 800 Output Total 450 Balance 350 Weight 44.2 kg General appearance: PRESENT: no acute distress, well-developed, well-nourished Head exam: PRESENT: atraumatic, normocephalic Eye exam: PRESENT: conjunctiva pink, EOMI, PERRLA. ABSENT: scleral icterus Ear exam: PRESENT: normal external ear exam Mouth exam: PRESENT: moist, tongue midline Neck exam: PRESENT: full ROM. ABSENT: carotid bruit, JVD, lymphadenopathy, thyromegaly Respiratory exam: PRESENT: clear to auscultation christopher Cardiovascular exam: PRESENT: RRR. ABSENT: diastolic murmur, rubs, systolic murmur Pulses: PRESENT: normal dorsalis pedis pul, +2 pedal pulses bilateral Vascular exam: PRESENT: normal capillary refill GI/Abdominal exam: PRESENT: normal bowel sounds, soft. ABSENT: distended, guarding, mass, organolmegaly, rebound, tenderness Rectal exam: PRESENT: deferred Additional comments: Left foot warm to touch redness in the pus Neurological exam: PRESENT: alert, awake, oriented to person, oriented to place , oriented to time, oriented to situation, CN II-XII grossly intact. ABSENT: motor sensory deficit Psychiatric exam: PRESENT: appropriate affect, normal mood. ABSENT: homicidal ideation, suicidal ideation Skin exam: PRESENT: dry, intact, warm. ABSENT: cyanosis, rash Results Laboratory Results: 04/07/18 06:27 04/07/18 06:27 04/07/18 04/07/18 06:27 06:27 WBC 7.1 RBC 4.02 Hgb 11.5 L Hct 33.5 L MCV 83 MCH 28.6 MCHC 34.3 RDW 13.6 Plt Count 235 Seg Neutrophils % 63.8 Lymphocytes % 26.6 Monocytes % 8.5 Eosinophils % 0.7 Basophils % 0.4 Absolute Neutrophils 4.6 Absolute Lymphocytes 1.9 Absolute Monocytes 0.6 Absolute Eosinophils 0.0 Absolute Basophils 0.0 Sodium 140.8 Potassium 3.9 Chloride 111 H Carbon Dioxide 22 Anion Gap 8 BUN 11 Creatinine 0.63 Est GFR ( Amer) > 60 Est GFR (Non-Af Amer) > 60 Glucose 80 Calcium 8.3 L Impressions: Lower Extremity MRI 04/06/18 15:23 IMPRESSION: No osteomyelitis. No well-defined soft tissue abscess. Vague focal fluid and generalize edema along the lateral aspect of the proximal phalanx of the 5th digit. Assessment & Plan - Diagnosis (1) Cellulitis of left foot Is this a current diagnosis for this admission?: Yes Plan: Will wait for the surgery and continues to IV antibiotic (2) History of intravenous drug abuse Is this a current diagnosis for this admission?: Yes Plan: not currently not using any drugs (3) Bipolar disorder Qualifiers: Active/Remission status: remission status unspecified Qualified Code(s): F31.9 - Bipolar disorder, unspecified Is this a current diagnosis for this admission?: Yes Plan: Currently all stable - Time Time Spent with patient: 15-24 minutes Medications reviewed and adjusted accordingly: Yes Anticipated discharge: Home Within: Other - Inpatient Certification Based on my medical assessment, after consideration of the patient's comorbidities, presenting symptoms, or acuity I expect that the services needed warrant INPATIENT care.: Yes I certify that my determination is in accordance with my understanding of Medicare's requirements for reasonable and necessary INPATIENT services [42 CFR 412.3e].: Yes Medical Necessity: Need Close Monitoring Due to Risk of Patient Decompensation, Need For IV Fluids, Need for IV Antibiotics 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
[2018-04-07] MEDS: VANCOMYCIN HCL 750 MG in DEXTROSE 5%-WATER 250 ML IV SCH ×2 (12:35→22:18)
--- NOTE | 2018-04-07 13:45 | PDOC CONSULTATION ---
Consultation Consult Date: 04/07/18 Consult reason:: left foot abscess History of Present Illness Admission Date/PCP: 04/06/18 16:28 RUDDY SIDDIQI History of Present Illness: DAVID MOONEY is a 32 year old female hx of drug abuse (THC and cocaine) admitted yesterday because of redness and swelling of the lateral left forefoot. She reports that she was trying to remove a callus of the left lateral forefoot 1 week ago, subsequently she walked barefoot, and she noted redness and swelling of the left lateral forefoot. She was started on oral Keflex 5 days ago by her PCP without improvement. An MRI was done on 04/06/18 and it shows a small abscess of the left lateral forefoot. Past Medical History Cardiac Medical History: Reports: None Pulmonary Medical History: Reports: None Endocrine Medical History: Reports: None Malignancy Medical History: Reports: None GI Medical History: Reports: None Musculoskeltal Medical History: Reports: Arthritis - TMJ joint pain Psychiatric Medical History: Reports: Bipolar Disorder, Depression Social History Smoking Status: Current Every Day Smoker Last Time Smoked: 04/06/2018 Frequency of Alcohol Use: Occasional Hx Recreational Drug Use: Yes Drugs: Cocaine Hx Prescription Drug Abuse: No - Advance Directive Resuscitation Status: Full Code Family History Family History: None Parental Family History Reviewed: No Children Family History Reviewed: No Sibling(s) Family History Reviewed.: No Medication/Allergy Home Medications: Buspirone HCl [Buspar 15 mg Tablet] 15 mg PO BIDP PRN 04/06/18 Oxcarbazepine [Trileptal 150 Mg Tablet] 150 mg PO QPM 04/06/18 Trazodone HCl [Desyrel] 200 mg PO QHS 04/06/18 Allergies/Adverse Reactions: aripiprazole [From Abilify] Allergy (Severe, Verified 04/06/18 14:19) Anaphylaxis olanzapine [From Zyprexa] Allergy (Severe, Verified 04/06/18 14:19) Anaphylaxis risperidone [From Risperdal] Allergy (Severe, Verified 04/06/18 14:19) Anaphylaxis Physical Exam Vital Signs: Temp Pulse Resp BP Pulse Ox 98.3 F 75 16 109/86 H 100 04/07/18 11:28 04/07/18 11:28 04/07/18 11:28 04/07/18 11:28 04/07/18 11:28 Intake & Output 04/06/18 04/07/18 04/08/18 06:59 06:59 06:59 Intake Total 800 Output Total 450 Balance 350 Weight 44.2 kg General appearance: PRESENT: mild distress, thin Head exam: PRESENT: atraumatic Eye exam: PRESENT: EOMI Mouth exam: PRESENT: neck supple Neck exam: PRESENT: full ROM Respiratory exam: PRESENT: chest wall tenderness Cardiovascular exam: PRESENT: RRR GI/Abdominal exam: PRESENT: normal bowel sounds, soft Extremities exam: PRESENT: full ROM Musculoskeletal exam: PRESENT: full ROM Neurological exam: PRESENT: oriented to person Skin exam: PRESENT: other - Left lateral forefoot and dorsum= area of erythema, edema, with large blister over the 5th MTP joint Results Laboratory Results: 04/07/18 06:27 04/07/18 06:27 04/07/18 04/07/18 06:27 06:27 WBC 7.1 RBC 4.02 Hgb 11.5 L Hct 33.5 L MCV 83 MCH 28.6 MCHC 34.3 RDW 13.6 Plt Count 235 Seg Neutrophils % 63.8 Lymphocytes % 26.6 Monocytes % 8.5 Eosinophils % 0.7 Basophils % 0.4 Absolute Neutrophils 4.6 Absolute Lymphocytes 1.9 Absolute Monocytes 0.6 Absolute Eosinophils 0.0 Absolute Basophils 0.0 Sodium 140.8 Potassium 3.9 Chloride 111 H Carbon Dioxide 22 Anion Gap 8 BUN 11 Creatinine 0.63 Est GFR ( Amer) > 60 Est GFR (Non-Af Amer) > 60 Glucose 80 Calcium 8.3 L Impressions: Lower Extremity MRI 04/06/18 15:23 IMPRESSION: No osteomyelitis. No well-defined soft tissue abscess. Vague focal fluid and generalize edema along the lateral aspect of the proximal phalanx of the 5th digit. Assessment & Plan - Plan Summary Plan Summary: A/ Left lateral forefoot and dorsum= area of erythema, edema, with large blister over the 5th MTP joint MRI does not show ostemyelitis, only small fluid collection over the 5th MTP joint Normal blood work P/ NPO past MN tonight Consent for I&D left foot abscess to be done tomorrow IVF Continue current antibiotics Procedure, risks, benefits discussed with the patient and family, she understands all the above and she decides to proceed
[2018-04-07] MEDS ORDERED: DEXTROSE 50%-WATER 25 GM/50 ML DISP.SYRIN IV PRN ×2 (13:46)
[2018-04-07] MEDS ORDERED: DEXTROSE 40% GEL 15 GM TUBE PO PRN ×2 (13:46)
[2018-04-07] MEDS ORDERED: GLUCAGON,HUMAN RECOMB 1 MG INJ SUBCUT PRN (13:46)
[2018-04-08] MEDS: OXYCODONE-ACETAMINOPHEN 5-325 MG TABLET PO PRN ×2 (00:22→20:48)
[2018-04-08] MEDS: NORMAL SALINE 1000 ML 1,000 ML IV PRN ×2 (00:23→16:06)
[2018-04-08] MEDS: PIPERACILLIN SODIUM/TAZOBACTAM 3.375 GM in NORMAL SALINE 100 ML IV SCH ×4 (02:23→20:41)
[2018-04-08] MEDS: HYDROMORPHONE HCL INJ/PF 2 MG/ML AMPULE IV PRN ×2 (02:23→23:23)
[2018-04-08 06:14] LABS: ABSOLUTE EOSINOPHILS # (AUTO) 0.1 10^3/uL (0.0-0.6); ABSOLUTE LYMPHOCYTES (AUTO) 1.8 10^3/uL (0.5-4.7); ABSOLUTE MONOCYTES (AUTO) 0.5 10^3/uL (0.1-1.4); ABSOLUTE NEUT (AUTO) 4.1 10^3/uL (1.7-8.2); BASOPHILS % (AUTO) 0.3 % (0-2); EOSINOPHILS % (AUTO) 0.8 % (0-6); HEMATOCRIT 33.9 % (36.0-47.0); HEMOGLOBIN 11.5 g/dL (12.0-15.5); LYMPHOCYTES % (AUTO) 28.3 % (13-45); MEAN CORPUSCULAR HEMOGLOBIN 28.2 pg (27.0-33.4); MEAN CORPUSCULAR VOLUME 83 fl (80-97); MONOCYTES % (AUTO) 7.2 % (3-13); PLATELET COUNT 259 10^3/uL (150-450); RED BLOOD COUNT 4.08 10^6/uL (3.72-5.28); RED CELL DISTRIBUTION WIDTH 13.6 % (11.5-14.0); SEGMENTED NEUTROPHILS % (AUTO) 63.4 % (42-78); TOTAL CELLS COUNTED % (AUTO) 100 %; WHITE BLOOD COUNT 6.4 10^3/uL (4.0-10.5)
[2018-04-08 06:39] LABS: BLOOD UREA NITROGEN 10 mg/dL (7-20); CALCIUM 8.4 mg/dL (8.4-10.2); CARBON DIOXIDE 26 mmol/L (22-30); GLUCOSE 97 mg/dL (75-110); POTASSIUM 3.9 mmol/L (3.6-5.0); SODIUM 140.9 mmol/L (137-145)
[2018-04-08 06:41] LABS: ANION GAP 6 (5-19); CHLORIDE 109 mmol/L (98-107)
[2018-04-08 07:34] LABS: VANCOMYCIN,TROUGH 10.3 ug/mL (5.0-20.0)
[2018-04-08] MEDS ORDERED: ONDANSETRON HCL INJ/PF 4 MG/2 ML SDV ONE (09:17)
[2018-04-08] MEDS ORDERED: FENTANYL CITRATE INJ/PF 100 MCG/2 ML AMPUL ONE (09:17)
[2018-04-08] MEDS ORDERED: MIDAZOLAM 2 MG/2 ML INJ ONE (09:17)
[2018-04-08] MEDS ORDERED: PROPOFOL INJ 200 MG/20 ML VIAL IV ONE (09:17)
[2018-04-08] MEDS ORDERED: NEOMY/BACITRAC ZN/POLY OINT 15 GM ONE (09:18)
[2018-04-08] MEDS: FAMOTIDINE 20 MG TABLET PO SCH ×2 (09:56→21:47)
[2018-04-08] MEDS: DOCUSATE SODIUM 100 MG CAPSULE PO SCH ×2 (09:56→17:45)
[2018-04-08] MEDS: VANCOMYCIN HCL 750 MG in DEXTROSE 5%-WATER 250 ML IV SCH ×2 (10:02→21:46)
--- NOTE | 2018-04-08 10:08 | Operative Report ---
Nonrecallable Operative Report DATE OF SURGERY: 04/08/18 PREOPERATIVE DIAGNOSIS: left lateral forefoot abscess POSTOPERATIVE DIAGNOSIS: same OPERATION: left lateral forefoot abscess I&D SURGEON: STEVEN CALZADA ANESTHESIA: LMAC TISSUE REMOVED OR ALTERED: n/a COMPLICATIONS: none ESTIMATED BLOOD LOSS: < 5 mL INTRAOPERATIVE FINDINGS: purulent collection under skin blister with 0.5 cm skin opening deep in the subcutaneous tissue, not reaching the bone or joint PROCEDURE: see dictation
--- NOTE | 2018-04-08 11:14 | PDOC PROGRESS REPORT ---
Subjective Progress Note for:: 04/08/18 Subjective:: Patient underwent for the incision and drainage for the surgery currently doing fair Patient's blood work is all stable's no fever overnight Reason For Visit: LEFT FOOT CELLULITIS AND ABSCESS Physical Exam Vital Signs: Temp Pulse Resp BP Pulse Ox 97.4 F 68 12 102/56 L 100 04/08/18 10:35 04/08/18 10:35 04/08/18 10:35 04/08/18 10:35 04/08/18 10:35 Intake & Output 04/07/18 04/08/18 04/09/18 06:59 06:59 06:59 Intake Total 800 1604 550 Output Total 450 1850 5 Balance 350 -246 545 Weight 44.2 kg 44.3 kg General appearance: PRESENT: no acute distress, well-developed, well-nourished Head exam: PRESENT: atraumatic, normocephalic Eye exam: PRESENT: conjunctiva pink, EOMI, PERRLA. ABSENT: scleral icterus Ear exam: PRESENT: normal external ear exam Mouth exam: PRESENT: moist, tongue midline Neck exam: PRESENT: full ROM. ABSENT: carotid bruit, JVD, lymphadenopathy, thyromegaly Respiratory exam: PRESENT: clear to auscultation christopher Cardiovascular exam: PRESENT: RRR. ABSENT: diastolic murmur, rubs, systolic murmur Pulses: PRESENT: normal dorsalis pedis pul, +2 pedal pulses bilateral Vascular exam: PRESENT: normal capillary refill GI/Abdominal exam: PRESENT: normal bowel sounds, soft. ABSENT: distended, guarding, mass, organolmegaly, rebound, tenderness Rectal exam: PRESENT: deferred Additional comments: Left foot dressing is intact Neurological exam: PRESENT: alert, awake, oriented to person, oriented to place , oriented to time, oriented to situation, CN II-XII grossly intact. ABSENT: motor sensory deficit Psychiatric exam: PRESENT: appropriate affect, normal mood. ABSENT: homicidal ideation, suicidal ideation Skin exam: PRESENT: dry, intact, warm. ABSENT: cyanosis, rash Results Laboratory Results: 04/08/18 05:38 04/08/18 05:35 04/08/18 04/08/18 05:35 05:38 WBC 6.4 RBC 4.08 Hgb 11.5 L Hct 33.9 L MCV 83 MCH 28.2 MCHC 34.0 RDW 13.6 Plt Count 259 Seg Neutrophils % 63.4 Lymphocytes % 28.3 Monocytes % 7.2 Eosinophils % 0.8 Basophils % 0.3 Absolute Neutrophils 4.1 Absolute Lymphocytes 1.8 Absolute Monocytes 0.5 Absolute Eosinophils 0.1 Absolute Basophils 0.0 Sodium 140.9 Potassium 3.9 Chloride 109 H Carbon Dioxide 26 Anion Gap 6 BUN 10 Creatinine 0.79 Est GFR ( Amer) > 60 Est GFR (Non-Af Amer) > 60 Glucose 97 Calcium 8.4 Impressions: Lower Extremity MRI 04/06/18 15:23 IMPRESSION: No osteomyelitis. No well-defined soft tissue abscess. Vague focal fluid and generalize edema along the lateral aspect of the proximal phalanx of the 5th digit. Assessment & Plan - Diagnosis (1) Cellulitis of left foot Is this a current diagnosis for this admission?: Yes Plan: Continues to IV antibiotics will wait for the culture and sensitivity from the wound (2) History of intravenous drug abuse Is this a current diagnosis for this admission?: Yes Plan: She is currently using the cocaine and other drugs according to the mother patient is going for the rehab center April 20 and then probably moving to the [place] (3) Bipolar disorder Qualifiers: Active/Remission status: remission status unspecified Qualified Code(s): F31.9 - Bipolar disorder, unspecified Is this a current diagnosis for this admission?: Yes Plan: Currently all stable - Time Time Spent with patient: 15-24 minutes Medications reviewed and adjusted accordingly: Yes Anticipated discharge: Home Within: Other - Inpatient Certification Based on my medical assessment, after consideration of the patient's comorbidities, presenting symptoms, or acuity I expect that the services needed warrant INPATIENT care.: Yes I certify that my determination is in accordance with my understanding of Medicare's requirements for reasonable and necessary INPATIENT services [42 CFR 412.3e].: Yes Medical Necessity: Need For IV Fluids, Need for IV Antibiotics Post Hospital Care: D/C [employer] Documentation - Plan Summary Plan Summary: As per discussed with the surgery continues to IV antibiotic wait for the culture and sensitivity and discussed with the mother regarding the patient's current conditions
[2018-04-08] MEDS ORDERED: NEOMY/BACITRAC ZN/POLY OINT 15 GM TP PRN (12:00)
--- NOTE | 2018-04-08 15:26 | OPERATIVE REPORT E ---
Operative Report NAME: DAVID MOONEY : 1985 AGE: 32Y DATE OF SURGERY: 04/08/2018 ROOM: 532 PREOPERATIVE DIAGNOSIS: LEFT FOREFOOT ABSCESS. POSTOPERATIVE DIAGNOSIS: LEFT FOREFOOT ABSCESS. OPERATION: Incision and drainage of left forefoot abscess, near fifth metatarsophalangeal joint. SURGEON: STEVEN CALZADA M.D. ELECTRICIAN TECHNICIAN: None. BLEEDING: Less than 5 mL. COMPLICATIONS: None. ANESTHESIA: MAC provided by anesthesiologist. FLUIDS: 200. INDICATIONS AND FINDINGS: This is a 32-year-old female with a history of cocaine and marijuana addiction, who presented to the hospital with a complaint of left lateral forefoot swelling, redness and blister for about 1 week. She states that she was trying to remove a callus using a stone and the friction caused an injury of the skin. She eventually was started on Keflex by her primary care physician, without improvement. On physical exam, she has a large blister located on the left lateral forefoot, just above and lateral to the fifth metatarsophalangeal joint. Procedure, risks, benefits and complications discussed with the patient. She understands all of the above and she decided to proceed. PROCEDURE: The procedure was done in the operating room. Patient was placed in supine position. MAC anesthesia provided by anesthesiologist. The left foot was prepped and draped in the usual fashion. An incision was made just above the blister and a large amount of pus was obtained. This was cultured and sent for culture, aerobic, anaerobic and gram stain. The blister was then completely excised with scissors, with exposure of the deep epithelium of the skin. A hole was identified on the lateral aspect of the forefoot, just above and lateral to the fifth metatarsophalangeal joint. The hole was gently debrided with scissors and a curette was inserted. The hole appeared to extend circumferentially into a small cavity, but the joint or bone were not appreciated. The area was irrigated with normal saline, filled with Triple Antibiotic antibiotic ointment and covered with Xeroform gauze and sterile dressings, Kerlix, Mastisol and Tobias bandage. The patient tolerated the procedure well and transferred to the recovery room in satisfactory condition. DICTATING PHYSICIAN: STEVEN CALZADA M.D. [id number] PHY#: [id number] ID: [id number] JOB#: [id number] ACCT: [id number] cc:STEVEN CALZADA M.D. > MAU
[2018-04-08] MEDS ORDERED: OXCARBAZEPINE 150 MG TABLET PO ONE (22:15)
[2018-04-08] MEDS ORDERED: TRAZODONE HCL 50 MG TABLET PO ONE (23:00)
[2018-04-08] MEDS ORDERED: OXCARBAZEPINE 150 MG TABLET ONE (23:10)
[2018-04-09] MEDS: PIPERACILLIN SODIUM/TAZOBACTAM 3.375 GM in NORMAL SALINE 100 ML IV SCH ×4 (02:37→22:31)
[2018-04-09] MEDS: NORMAL SALINE 1000 ML 1,000 ML IV PRN (02:40)
[2018-04-09] MEDS: OXYCODONE-ACETAMINOPHEN 5-325 MG TABLET PO PRN ×4 (04:53→22:32)
[2018-04-09 05:50] LABS: ABSOLUTE EOSINOPHILS # (AUTO) 0.1 10^3/uL (0.0-0.6); ABSOLUTE LYMPHOCYTES (AUTO) 1.9 10^3/uL (0.5-4.7); ABSOLUTE MONOCYTES (AUTO) 0.5 10^3/uL (0.1-1.4); ABSOLUTE NEUT (AUTO) 3.2 10^3/uL (1.7-8.2); BASOPHILS % (AUTO) 0.5 % (0-2); EOSINOPHILS % (AUTO) 1.2 % (0-6); HEMOGLOBIN 11.7 g/dL (12.0-15.5); LYMPHOCYTES % (AUTO) 33.8 % (13-45); MEAN CORPUSCULAR HEMOGLOBIN 27.9 pg (27.0-33.4); MEAN CORPUSCULAR HGB CONC 33.5 g/dL (32.0-36.0); MEAN CORPUSCULAR VOLUME 83 fl (80-97); MONOCYTES % (AUTO) 8.3 % (3-13); PLATELET COUNT 277 10^3/uL (150-450); RED CELL DISTRIBUTION WIDTH 13.6 % (11.5-14.0); SEGMENTED NEUTROPHILS % (AUTO) 56.2 % (42-78); TOTAL CELLS COUNTED % (AUTO) 100 %; WHITE BLOOD COUNT 5.8 10^3/uL (4.0-10.5)
[2018-04-09 06:18] LABS: ANION GAP 5 (5-19); BLOOD UREA NITROGEN 12 mg/dL (7-20); CALCIUM 8.5 mg/dL (8.4-10.2); CARBON DIOXIDE 27 mmol/L (22-30); CHLORIDE 108 mmol/L (98-107); GLUCOSE 107 mg/dL (75-110); SODIUM 140.3 mmol/L (137-145)
[2018-04-09] MEDS: FAMOTIDINE 20 MG TABLET PO SCH ×2 (09:20→22:32)
[2018-04-09] MEDS: DOCUSATE SODIUM 100 MG CAPSULE PO SCH ×2 (09:20→17:30)
[2018-04-09] MEDS: VANCOMYCIN HCL 750 MG in DEXTROSE 5%-WATER 250 ML IV SCH ×2 (09:21→23:35)
--- NOTE | 2018-04-09 10:22 | PDOC PROGRESS REPORT ---
Subjective Progress Note for:: 04/09/18 Subjective:: Patient is currently doing well underwent for the incision and drainage Denied any chest pain denied any shortness of the breath no fever no chills Reason For Visit: LEFT FOOT CELLULITIS AND ABSCESS Physical Exam Vital Signs: Temp Pulse Resp BP Pulse Ox 98.6 F 61 15 92/59 L 99 04/09/18 08:09 04/09/18 08:09 04/09/18 08:09 04/09/18 08:09 04/09/18 08:09 Intake & Output 04/08/18 04/09/18 04/10/18 06:59 06:59 06:59 Intake Total 1604 4470 100 Output Total 1850 4205 Balance -246 265 100 Weight 44.3 kg 44.2 kg General appearance: PRESENT: no acute distress, well-developed, well-nourished Head exam: PRESENT: atraumatic, normocephalic Eye exam: PRESENT: conjunctiva pink, EOMI, PERRLA. ABSENT: scleral icterus Ear exam: PRESENT: normal external ear exam Mouth exam: PRESENT: moist, tongue midline Neck exam: PRESENT: full ROM. ABSENT: carotid bruit, JVD, lymphadenopathy, thyromegaly Respiratory exam: PRESENT: clear to auscultation christopher Cardiovascular exam: PRESENT: RRR. ABSENT: diastolic murmur, rubs, systolic murmur Pulses: PRESENT: normal dorsalis pedis pul, +2 pedal pulses bilateral Vascular exam: PRESENT: normal capillary refill GI/Abdominal exam: PRESENT: normal bowel sounds, soft. ABSENT: distended, guarding, mass, organolmegaly, rebound, tenderness Rectal exam: PRESENT: deferred Additional comments: Left foot dressing is intact Neurological exam: PRESENT: alert, awake, oriented to person, oriented to place , oriented to time, oriented to situation, CN II-XII grossly intact. ABSENT: motor sensory deficit Psychiatric exam: PRESENT: appropriate affect, normal mood. ABSENT: homicidal ideation, suicidal ideation Skin exam: PRESENT: dry, intact, warm. ABSENT: cyanosis, rash Results Laboratory Results: 04/09/18 04:30 04/09/18 04:30 04/09/18 04/09/18 04:30 04:30 WBC 5.8 RBC 4.20 Hgb 11.7 L Hct 35.0 L MCV 83 MCH 27.9 MCHC 33.5 RDW 13.6 Plt Count 277 Seg Neutrophils % 56.2 Lymphocytes % 33.8 Monocytes % 8.3 Eosinophils % 1.2 Basophils % 0.5 Absolute Neutrophils 3.2 Absolute Lymphocytes 1.9 Absolute Monocytes 0.5 Absolute Eosinophils 0.1 Absolute Basophils 0.0 Sodium 140.3 Potassium 4.0 Chloride 108 H Carbon Dioxide 27 Anion Gap 5 BUN 12 Creatinine 0.69 Est GFR ( Amer) > 60 Est GFR (Non-Af Amer) > 60 Glucose 107 Calcium 8.5 Impressions: Lower Extremity MRI 04/06/18 15:23 IMPRESSION: No osteomyelitis. No well-defined soft tissue abscess. Vague focal fluid and generalize edema along the lateral aspect of the proximal phalanx of the 5th digit. Assessment & Plan - Diagnosis (1) Cellulitis of left foot Is this a current diagnosis for this admission?: Yes Plan: Continues to IV antibiotics will wait for the culture and sensitivity from the wound (2) History of intravenous drug abuse Is this a current diagnosis for this admission?: Yes Plan: She is currently using the cocaine and other drugs according to the mother patient is going for the rehab center April 20 and then probably moving to the [place] (3) Bipolar disorder Qualifiers: Active/Remission status: remission status unspecified Qualified Code(s): F31.9 - Bipolar disorder, unspecified Is this a current diagnosis for this admission?: Yes Plan: Currently all stable - Time Time Spent with patient: 15-24 minutes Medications reviewed and adjusted accordingly: Yes Anticipated discharge: Home Within: Other - Inpatient Certification Based on my medical assessment, after consideration of the patient's comorbidities, presenting symptoms, or acuity I expect that the services needed warrant INPATIENT care.: Yes I certify that my determination is in accordance with my understanding of Medicare's requirements for reasonable and necessary INPATIENT services [42 CFR 412.3e].: Yes Medical Necessity: Need For IV Fluids, Need for IV Antibiotics Post Hospital Care: D/C [employer] Documentation - Plan Summary Plan Summary: Continues to IV antibiotics will wait for the culture and sensitivity
[2018-04-09] MEDS ORDERED: ONDANSETRON 4 MG TAB.RAPDIS PO PRN (10:30)
--- NOTE | 2018-04-09 14:43 | PDOC PROGRESS REPORT ---
Subjective Progress Note for:: 04/09/18 Subjective:: Patient complaining of pain. Reason For Visit: LEFT FOOT CELLULITIS AND ABSCESS Physical Exam Vital Signs: Temp Pulse Resp BP Pulse Ox 98.2 F 64 16 106/55 L 100 04/09/18 11:38 04/09/18 11:38 04/09/18 11:38 04/09/18 11:38 04/09/18 11:38 Intake & Output 04/08/18 04/09/18 04/10/18 06:59 06:59 06:59 Intake Total 1604 4470 1350 Output Total 1850 4205 Balance -113 184 0146 Weight 44.3 kg 44.2 kg General appearance: PRESENT: other - Anxious, sitting upright in bed Musculoskeletal exam: PRESENT: other - Dressing removed uneventfully. Xeroform and gauze removed; erythema and edema will think; recently debrided site reasonably clean, no foul smell, small amount is debris only. Results Laboratory Results: 04/09/18 04:30 04/09/18 04:30 04/09/18 04/09/18 04:30 04:30 WBC 5.8 RBC 4.20 Hgb 11.7 L Hct 35.0 L MCV 83 MCH 27.9 MCHC 33.5 RDW 13.6 Plt Count 277 Seg Neutrophils % 56.2 Lymphocytes % 33.8 Monocytes % 8.3 Eosinophils % 1.2 Basophils % 0.5 Absolute Neutrophils 3.2 Absolute Lymphocytes 1.9 Absolute Monocytes 0.5 Absolute Eosinophils 0.1 Absolute Basophils 0.0 Sodium 140.3 Potassium 4.0 Chloride 108 H Carbon Dioxide 27 Anion Gap 5 BUN 12 Creatinine 0.69 Est GFR ( Amer) > 60 Est GFR (Non-Af Amer) > 60 Glucose 107 Calcium 8.5 Impressions: Lower Extremity MRI 04/06/18 15:23 IMPRESSION: No osteomyelitis. No well-defined soft tissue abscess. Vague focal fluid and generalize edema along the lateral aspect of the proximal phalanx of the 5th digit. Assessment & Plan - Diagnosis (1) Abscess of foot without toes, left Is this a current diagnosis for this admission?: Yes Plan: Impression: Clinically improved left foot status post operative debridement, on intravenous await cultures, no evidence of cellulitic progression Recommendations: 1. Continue foot elevation, intravenous antibiotics today 2. Patient wanted to go home today; stay in the hospital until the dorsal surface cellulitis has resolved, hopefully by tomorrow
[2018-04-09] MEDS ORDERED: TRAZODONE HCL 50 MG TABLET PO SCH (22:00)
[2018-04-09] MEDS: OXCARBAZEPINE 150 MG TABLET PO SCH (22:43)
[2018-04-10] MEDS: PIPERACILLIN SODIUM/TAZOBACTAM 3.375 GM in NORMAL SALINE 100 ML IV SCH ×3 (03:11→15:30)
[2018-04-10] MEDS: OXYCODONE-ACETAMINOPHEN 5-325 MG TABLET PO PRN ×2 (05:21→10:59)
--- NOTE | 2018-04-10 08:33 | PDOC PROGRESS REPORT ---
Subjective Progress Note for:: 04/10/18 Subjective:: Patient is currently doing well underwent for the incision and drainage Denied any chest pain denied any shortness of the breath no fever no chills Reason For Visit: LEFT FOOT CELLULITIS AND ABSCESS Physical Exam Vital Signs: Temp Pulse Resp BP Pulse Ox 98.3 F 64 14 91/46 L 98 04/10/18 07:31 04/10/18 07:31 04/10/18 07:31 04/10/18 07:31 04/10/18 07:31 Intake & Output 04/09/18 04/10/18 04/11/18 06:59 06:59 06:59 Intake Total 4470 3159 Output Total 4205 700 Balance 265 2459 Weight 44.2 kg 43.1 kg General appearance: PRESENT: no acute distress, well-developed, well-nourished Head exam: PRESENT: atraumatic, normocephalic Eye exam: PRESENT: conjunctiva pink, EOMI, PERRLA. ABSENT: scleral icterus Ear exam: PRESENT: normal external ear exam Mouth exam: PRESENT: moist, tongue midline Neck exam: PRESENT: full ROM. ABSENT: carotid bruit, JVD, lymphadenopathy, thyromegaly Respiratory exam: PRESENT: clear to auscultation christopher Cardiovascular exam: PRESENT: RRR. ABSENT: diastolic murmur, rubs, systolic murmur Pulses: PRESENT: normal dorsalis pedis pul, +2 pedal pulses bilateral Vascular exam: PRESENT: normal capillary refill GI/Abdominal exam: PRESENT: normal bowel sounds, soft. ABSENT: distended, guarding, mass, organolmegaly, rebound, tenderness Rectal exam: PRESENT: deferred Additional comments: Left foot dressing is intact Musculoskeletal exam: PRESENT: ambulatory Neurological exam: PRESENT: alert, awake, oriented to person, oriented to place , oriented to time, oriented to situation, CN II-XII grossly intact. ABSENT: motor sensory deficit Psychiatric exam: PRESENT: appropriate affect, normal mood. ABSENT: homicidal ideation, suicidal ideation Skin exam: PRESENT: dry, intact, warm. ABSENT: cyanosis, rash Results Laboratory Results: 04/09/18 04:30 04/09/18 04:30 Impressions: Lower Extremity MRI 04/06/18 15:23 IMPRESSION: No osteomyelitis. No well-defined soft tissue abscess. Vague focal fluid and generalize edema along the lateral aspect of the proximal phalanx of the 5th digit. Assessment & Plan - Diagnosis (1) Cellulitis of left foot Is this a current diagnosis for this admission?: Yes Plan: Continues to IV antibiotics will wait for the culture and sensitivity from the wound (2) History of intravenous drug abuse Is this a current diagnosis for this admission?: Yes Plan: She is currently using the cocaine and other drugs according to the mother patient is going for the rehab center April 20 and then probably moving to the [place] (3) Bipolar disorder Qualifiers: Active/Remission status: remission status unspecified Qualified Code(s): F31.9 - Bipolar disorder, unspecified Is this a current diagnosis for this admission?: Yes Plan: Currently all stable - Time Time Spent with patient: 15-24 minutes Medications reviewed and adjusted accordingly: Yes Anticipated discharge: Home, Other Within: within 24 hours - Inpatient Certification Based on my medical assessment, after consideration of the patient's comorbidities, presenting symptoms, or acuity I expect that the services needed warrant INPATIENT care.: Yes I certify that my determination is in accordance with my understanding of Medicare's requirements for reasonable and necessary INPATIENT services [42 CFR 412.3e].: Yes Medical Necessity: Significant Comorbidiites Make Outpatient Treatment Too Risky , Need for IV Antibiotics Post Hospital Care: D/C [employer] Documentation - Plan Summary Plan Summary: Awaiting for the culture and sensitivity of the wound continues to current medications
--- NOTE | 2018-04-10 10:55 | PDOC PROGRESS REPORT ---
Subjective Progress Note for:: 04/10/18 Subjective:: comfortable Reason For Visit: LEFT FOOT CELLULITIS AND ABSCESS Physical Exam Vital Signs: Temp Pulse Resp BP Pulse Ox 98.3 F 64 14 91/46 L 98 04/10/18 07:31 04/10/18 07:31 04/10/18 07:31 04/10/18 07:31 04/10/18 07:31 Intake & Output 04/09/18 04/10/18 04/11/18 06:59 06:59 06:59 Intake Total 4470 3159 Output Total 4205 700 Balance 265 2459 Weight 44.2 kg 43.1 kg General appearance: PRESENT: no acute distress Extremities exam: PRESENT: other - Left foot= decreased erythema and edema; wound healing, no drainage, no odor Results Laboratory Results: 04/09/18 04:30 04/09/18 04:30 Impressions: Lower Extremity MRI 04/06/18 15:23 IMPRESSION: No osteomyelitis. No well-defined soft tissue abscess. Vague focal fluid and generalize edema along the lateral aspect of the proximal phalanx of the 5th digit. Assessment & Plan - Diagnosis (1) Abscess of foot without toes, left Is this a current diagnosis for this admission?: Yes - Plan Summary Plan Summary: A/ POD#2 after I&D left foot abscess Cx preliminary significant for GPC, final pending Left foot and wound appear to respond to drainage and antibiotics P/ Continue current abx treatment until final cx are available Afterwards, adjust abx accordingly Patient can be discharged to home on a 10 day course of oral abx No narcotics, Tylenol only for pain Recommend shower only until wound is fully closed (about 2 weeks), then can bathe Follow up with General Surgery clinic [facility] 2 weeks after discharge. I will sign off, please call me with questions
[2018-04-10] MEDS ORDERED: ACETAMINOPHEN 325 MG TABLET PO PRN ×2 (10:57→16:53)
[2018-04-10] MEDS: FAMOTIDINE 20 MG TABLET PO SCH (10:58)
[2018-04-10] MEDS: DOCUSATE SODIUM 100 MG CAPSULE PO SCH (10:58)
[2018-04-10] MEDS: VANCOMYCIN HCL 750 MG in DEXTROSE 5%-WATER 250 ML IV SCH (12:00)
[2018-04-10] MEDS ORDERED: KETOROLAC TROMETHAMINE INJ/PF 30 MG/1 ML SDV IV PRN (15:53)
[2018-04-10] MEDS ORDERED: DEXTROSE 40% GEL 15 GM TUBE PO PRN ×2 (16:52→16:53)
[2018-04-10] MEDS ORDERED: DEXTROSE 50%-WATER 25 GM/50 ML DISP.SYRIN IV PRN ×2 (16:53)
[2018-04-10] MEDS ORDERED: ONDANSETRON 4 MG TAB.RAPDIS PO PRN (16:53)
[2018-04-10] MEDS ORDERED: GLUCAGON,HUMAN RECOMB 1 MG INJ SUBCUT PRN (16:53)
[2018-04-10] MEDS: SULFAMETHOXAZOLE/TRIMETHOPRIM 800-160 MG TABLET PO SCH (17:46)
[2018-04-10] MEDS: KETOROLAC TROMETHAMINE INJ/PF 30 MG/1 ML SDV IV SCH (17:46)
[2018-04-10] MEDS ORDERED: DOCUSATE SODIUM 100 MG CAPSULE PO SCH (18:00)
[2018-04-10] MEDS ORDERED: KETOROLAC TROMETHAMINE INJ/PF 30 MG/1 ML SDV IV SCH (18:00)
[2018-04-10] MEDS ORDERED: NAPROXEN 250 MG TABLET PO SCH (18:00)
[2018-04-10] MEDS ORDERED: SULFAMETHOXAZOLE/TRIMETHOPRIM 800-160 MG TABLET PO SCH (18:00)
[2018-04-10] MEDS ORDERED: FAMOTIDINE 20 MG TABLET PO SCH (22:00)
[2018-04-10] MEDS ORDERED: TRAZODONE HCL 50 MG TABLET PO SCH (22:00)
[2018-04-10] MEDS: OXCARBAZEPINE 150 MG TABLET PO SCH (22:10)
[2018-04-11] MEDS: KETOROLAC TROMETHAMINE INJ/PF 30 MG/1 ML SDV IV SCH ×2 (00:18→05:52)
[2018-04-11] MEDS: SULFAMETHOXAZOLE/TRIMETHOPRIM 800-160 MG TABLET PO SCH (05:52)
[2018-04-11 08:33] VITALS: BP 96/55
--- NOTE | 2018-04-11 12:09 | PDOC DISCHARGE SUMMARY ---
General - Admit/Disc Date/PCP Admission Date/Primary Care Provider: 04/06/18 16:28 RUDDY SIDDIQI Discharge Date: 04/11/18 - Discharge Diagnosis (1) Cellulitis of left foot Is this a current diagnosis for this admission?: Yes Summary: Status post IND follow with the surgery and currently on a p.o. antibiotic for 10 days as per surgical recommendations currently doing well (2) History of intravenous drug abuse Is this a current diagnosis for this admission?: Yes Summary: Patient is scheduled to go to the rehab in the [place] in April 19 week (3) Bipolar disorder Is this a current diagnosis for this admission?: Yes Summary: Continues to follow with the psych - Additional Information Resuscitation Status: Full Code Discharge Diet: As Tolerated Discharge Activity: Activity As Tolerated, Balance Activity w/Rest Prescriptions: Famotidine [Pepcid 20 mg Tablet] 20 mg PO Q12 #30 tablet Sulfamethoxazole/Trimethoprim [Septra-Ds 800-160 mg Tablet] 1 tab PO Q12A #20 tablet Home Medications: Buspirone HCl [Buspar 15 mg Tablet] 15 mg PO BIDP PRN 04/06/18 Oxcarbazepine [Trileptal 150 mg Tablet] 150 mg PO QPM 04/06/18 Trazodone HCl [Desyrel] 200 mg PO QHS 04/06/18 Famotidine [Pepcid 20 mg Tablet] 20 mg PO Q12 #30 tablet 04/11/18 Sulfamethoxazole/Trimethoprim [Septra-Ds 800-160 mg Tablet] 1 tab PO Q12A #20 tablet 04/11/18 History of Present Illness History of Present Illness: DAVID MOONEY is a 32 year old female Ms. Mooney is a 32 y/o F who presents today for three day follow up of L lateral foot pain. She states the pain has gotten worse, swelling increased. She was started on Keflex last visit, has been taking TID. She denies any fever or chills. She admits the pain is so severe she has been using crutches to walk. Patient is seen in the officeAnd the patient's the foot is more redness and pretty much pus point and the patient's more painful decided to send to the emergency department and emergency department patient was started on IV antibiotic and consult the surgery She also had a x-ray of the left foot was done 3 days back was all normal Is currently denied any drugs no alcohol no subsequent drug abuse Pt with history of IV drug use, has not been using regularly. Hospital Course Hospital Course: Patient is admitted for the left foot infection status post outpatients p.o. antibiotic failure and patient's underwent for the IV antibiotic and underwent for the surgical incision and drainage in the left foot abscess and the patient had MRI of the left foot did not show any osteomyelitis and patient's response very well with the IV antibiotic and surgery in patients put on a p.o. antibiotic Patient is otherwise afebrile blood count is all stable discussed with the mother were extensively regarding the patient's current conditions and patient' s schedule for the outpatients rehab next week and follow with the surgery Physical Exam Vital Signs: Temp Pulse Resp BP Pulse Ox 98.4 F 68 18 106/48 L 100 04/11/18 08:14 04/11/18 08:14 04/11/18 08:14 04/11/18 08:14 04/11/18 08:14 Intake & Output 04/10/18 04/11/18 04/12/18 06:59 06:59 06:59 Intake Total 3159 1238 Output Total 700 Balance 2459 1238 Weight 43.1 kg 47.3 kg General appearance: PRESENT: no acute distress, well-developed, well-nourished Head exam: PRESENT: atraumatic, normocephalic Eye exam: PRESENT: conjunctiva pink, EOMI, PERRLA. ABSENT: scleral icterus Ear exam: PRESENT: normal external ear exam Mouth exam: PRESENT: moist, tongue midline Neck exam: PRESENT: full ROM. ABSENT: carotid bruit, JVD, lymphadenopathy, thyromegaly Respiratory exam: PRESENT: clear to auscultation christopher Cardiovascular exam: PRESENT: RRR. ABSENT: diastolic murmur, rubs, systolic murmur Pulses: PRESENT: normal dorsalis pedis pul, +2 pedal pulses bilateral Vascular exam: PRESENT: normal capillary refill GI/Abdominal exam: PRESENT: normal bowel sounds, soft. ABSENT: distended, guarding, mass, organolmegaly, rebound, tenderness Rectal exam: PRESENT: deferred Additional comments: Left foot the dressing is intact Neurological exam: PRESENT: alert, awake, oriented to person, oriented to place , oriented to time, oriented to situation, CN II-XII grossly intact. ABSENT: motor sensory deficit Psychiatric exam: PRESENT: appropriate affect, normal mood. ABSENT: homicidal ideation, suicidal ideation Skin exam: PRESENT: dry, intact, warm. ABSENT: cyanosis, rash Results Laboratory Results: 04/09/18 04:30 04/09/18 04:30 Impressions: Lower Extremity MRI 04/06/18 15:23 IMPRESSION: No osteomyelitis. No well-defined soft tissue abscess. Vague focal fluid and generalize edema along the lateral aspect of the proximal phalanx of the 5th digit. Qualifiers - * PATIENT BEING DISCHARGED WITH ANY OF THE FOLLOWING DIAGNOSIS: No VTE patient discharged on overlapping Therapy?: Yes Plan Time Spent: Greater than 30 Minutes - Discharge home with a stable conditions follow with the outpatient surgery and outpatients rehab
== END 2018-04-11 09:58 | disposition home or self-care (01) | DRG 581 ==
LOC: ER 14:19 → EH 16:28 → 5 18:53
PROVIDERS: ADMIT Family Medicine; ATTEND Family Medicine
PROC: 0JDR0ZZ Extraction of Left Foot Subcutaneous Tissue and Fascia, Open Approach (ICD-10-PCS; principal; 2018-04-08 09:30)
DX: L03.116 Cellulitis of left lower limb (principal); F31.9 Bipolar disorder, unspecified; F17.210 Nicotine dependence, cigarettes, uncomplicated; F14.10 Cocaine abuse, uncomplicated; F15.10 Other stimulant abuse, uncomplicated; F12.10 Cannabis abuse, uncomplicated; M19.90 Unspecified osteoarthritis, unspecified site; Z88.8 Allergy status to other drugs, medicaments and biological substances
CPT/HCPCS: 00400; 36415; 80048; 80053; 80202; 80307; 83605; 85025; 87040; 87070; 87075; 87077; 87186; 87205; 96374; 96375; 99285; A9576; J1170; J1650; J1885; J2250; J2405; J2543; J2704; J3010; J3370; J3490; J7030; J7060